=== PATIENT | male | born 1960 | race Caucasian/White ===

== ENCOUNTER → 2018-04-01 | Outpatient (CLI) | payer OTHER | LOC: M.RAD 12:06 | DX: R05 Cough (principal); R06.2 Wheezing ==

== ENCOUNTER 2018-11-04 20:30 | Emergency (ER) | payer OTHER ==
[~2018-11-04] VITALS: Ht 182.9 cm; Wt 86.2 kg
[2018-11-04] MEDS ORDERED: FLOMAX0.4 MG PO (20:37)
[2018-11-04 20:52] LABS: URINE BILIRUBIN NEGATIVE (Negative); URINE BLOOD 2+ (Negative); URINE CLARITY CLEAR; URINE COLOR YELLOW; URINE GLUCOSE-RANDOM NEGATIVE (Negative); URINE KETONES NEGATIVE (Negative); URINE NITRITE-REFLEX NEGATIVE (Negative); URINE PROTEIN TRACE (Negative); URINE SPECIFIC GRAVITY <= 1.005 (1.005-1.030); URINE UROBILINOGEN 0.2 E.U./dl (0.2-1.0)
[2018-11-04 20:58] LABS: URINE LEUKOCYTES-REFLEX 2+ (Negative)
[2018-11-04 21:01] LABS: BACTERIA-REFLEX >30 Many /HPF (None Seen); CASTS None Seen /LPF (None Seen); CRYSTALS None Seen /LPF (None Seen); MUCUS 0-3 Light strn/LPF (None Seen); SQUAMOUS 0-3 Few /LPF (0-3); URINE RBC >20 Many /HPF (0-2); URINE WBC-REFLEX >25 Many /HPF (0-5); WBC CLUMPS Moderate (None Seen)
[2018-11-04 21:02] LABS: YEAST-REFLEX Present (None Seen)
[2018-11-04] MEDS ORDERED: LEVAQUIN 750 M750 MG PO (21:06)
[2018-11-04] MEDS ORDERED: DIFLUCAN200 MG PO (21:06)
[2018-11-04 21:23] VITALS: BP 127/84
== END 2018-11-04 21:24 | disposition home or self-care (01) ==
LOC: M.ERS 20:30
PROVIDERS: Family Medicine
DX: N39.0 Urinary tract infection, site not specified (principal)